=== PATIENT | female | born 1955 | race American Indian/Alaskan Native ===

== ENCOUNTER 2016-10-27 09:06 | Emergency (ER) | payer OTHER ==
[2016-10-27 09:25] VITALS: BP 148/83
[2016-10-27] MEDS ORDERED: TORADOL IM ONE (10:37)
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
== END 2016-10-27 12:05 | disposition home or self-care (01) ==
LOC: ED 09:06
DX: M79.1 Myalgia (principal); E78.00 Pure hypercholesterolemia, unspecified; V49.49XA Driver injured in collision with other motor vehicles in traffic accident, initial encounter; Y93.9 Activity, unspecified; Y92.9 Unspecified place or not applicable; Y99.9 Unspecified external cause status
CPT/HCPCS: 73070; 96372; 99283; J1885

== ENCOUNTER 2017-02-16 17:38 | Emergency (ER) | payer SELFPAY ==
[2017-02-16 17:53] VITALS: BP 139/80
[2017-02-16] MEDS ORDERED: TORADOL IM ONE (20:46)
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
== END 2017-02-16 22:00 | disposition home or self-care (01) ==
LOC: ED 17:38
DX: S66.912A Strain of unspecified muscle, fascia and tendon at wrist and hand level, left hand, initial encounter (principal); E78.00 Pure hypercholesterolemia, unspecified; M79.1 Myalgia; V49.9XXD Car occupant (driver) (passenger) injured in unspecified traffic accident, subsequent encounter
CPT/HCPCS: 73090; 96372; 99283; J1885